=== PATIENT | male | born 1945 | race Caucasian/White ===

== ENCOUNTER → 2017-09-11 11:04 | Outpatient (CLI) | payer MEDICARE, OTHER, SELFPAY ==
[2017-09-11 12:13] LABS: INR 1.3 (0.9-1.3); Prothrombin Time 14.4 SECONDS (10.1-12.7)
== END ==
PROVIDERS: PCP Internal Medicine; Visit Provider Internal Medicine
DX: I48.0 Paroxysmal atrial fibrillation (principal)
CPT/HCPCS: 36415; 85610